=== PATIENT | male | born 1980 | race Caucasian/White ===

== ENCOUNTER 2019-03-30 19:41 | Emergency (ER) | payer MEDICAID, OTHER ==
[~2019-03-30] VITALS: Ht 180.3 cm; Wt 61.4 kg
[2019-03-30] MEDS ORDERED: acetaminophen 325mg tablet PO ONE (20:45)
[2019-03-30] MEDS ORDERED: LIDOCAINE 5% OINTMENT 35GM TP ONE (20:45)
[2019-03-30] MEDS ORDERED: GLYC1MED64 TOP (20:50)
[2019-03-30] MEDS ORDERED: LIDO30CR23 TOP (20:50)
[2019-03-30] MEDS ORDERED: ACET-2615 PO (20:50)
[2019-03-30] MEDS ORDERED: HYDR25SU32 RC (20:50)
[2019-03-30 21:29] VITALS: BP 123/93
== END 2019-03-30 21:31 | disposition home or self-care (01) ==
LOC: ER 19:42
DX: K64.5 Perianal venous thrombosis (principal); F12.90 Cannabis use, unspecified, uncomplicated; F17.200 Nicotine dependence, unspecified, uncomplicated; Z79.899 Other long term (current) drug therapy; Z60.2 Problems related to living alone
CPT/HCPCS: 99283